=== PATIENT | male | born 1955 | race Caucasian/White ===

== ENCOUNTER 2017-05-04 02:25 | Emergency (ER) | payer MEDICARE, OTHER | END 2017-05-04 22:06 | disposition home or self-care (01) | LOC: CED 02:25 | DX: R10.9 Unspecified abdominal pain (principal); I10 Essential (primary) hypertension; E10.9 Type 1 diabetes mellitus without complications; F17.200 Nicotine dependence, unspecified, uncomplicated | CPT/HCPCS: 99283 ==

== ENCOUNTER 2017-05-04 16:19 | Emergency (ER) | payer MEDICARE, OTHER ==
[~2017-05-04] VITALS: Ht 175.3 cm; Wt 90.0 kg
--- NOTE | ~2017-05-04 | EKG ---
PATIENT: JENIFFER BRYANT UNIT #: [id number] Ventricular Rate: 117 BPM Atrial Rate: 117 BPM P-R Interval: 158 ms QRS Duration: 94 ms Q-T Interval: 336 ms QTC Calculation(Bezet): 468 ms P Midland: 48 degrees Calculated R Midland: -70 degrees Calculated T Mid[place]: 20 degrees Diagnosis Line: Sinus tachycardia Diagnosis Line: Possible Left atrial enlargement Diagnosis Line: Incomplete right bundle branch block Diagnosis Line: Left anterior fascicular block Diagnosis Line: Abnormal ECG Diagnosis Line: No previous ECGs available Diagnosis Line: Confirmed by DANDY WAHL MD ([id number]) on 05/04/2017 Diagnosis Line: 8:04:33 PM INTERPRETING MD: MARYURI CONNER
--- NOTE | ~2017-05-04 | CT4 ---
[facility] A Service of [facility] RADIOLOGY TEXT RESULTS PATIENT: JENIFFER BRYANT LOCATION: [place] : 55 UNIT #: [id number] AGE: [address]: Ariel Mauricio MD SEX: M ORDER DR: [id number] [facility] [address] [place], [place] [address] [id number] MR#: [id number] #: [id number] NAME: JENIFFER BRYANT : 1955 SEX: M STUDY DATE/TIME: 05/04/2017 21:13 UNIT: [facility] ROOM: STUDY DESCRIPTION: CT Abd and Pelv Wo Cont Attending Physician: Ariel Mauricio Ordering Physician: Ed Doctor [id number] [facility] Primary Care Physician: Noel Tavares M.D. MEDICAL IMAGING REPORT This report is preliminary unless electronic signature is present EXAM CT abdomen and pelvis without contrast HISTORY Abdominal pain for 2 days diagnosed with gastroenteritis. Previously seen in the emergency room. Axial images perform through the abdomen and pelvis without contrast. Multiplanar reconstructed images reviewed. The CT exam was performed with one or more of the following radiation dose reduction techniques: automatic exposure control, adjustment of mA and/or kV according to patient size, and iterative reconstruction. ABDOMEN The lung bases unremarkable except for left lower lobe granuloma. Liver demonstrates fatty infiltration. Spleen, gallbladder normal except for splenic granulomas. Pancreas, kidneys and adrenal glands unremarkable. GI tract unremarkable. There is increased attenuation throughout the colon could be related to the distal preparation. PELVIS: Bladder is mildly distended. Prostate unremarkable. Osseous structures remarkable for grade 1 spondylolisthesis L5 on S1 with bilateral L5-S1 facet arthropathy. No definite pars defects seen. The IMPRESSION 1. Diffuse fatty infiltration of the liver. 2. L5-S1 degenerative disc disease with a grade 1 spondylolisthesis L5 on S1 and bilateral L4-5, L5-S1 facet arthropathy. Dictated by... [facility] A Service of [facility] RADIOLOGY TEXT RESULTS PATIENT: JENIFFER BRYANT LOCATION: [place] : 55 UNIT #: [id number] AGE: [address]: Ariel Mauricio MD SEX: M ORDER DR: Yee Bajwa M.D. THIS IS AN ELECTRONICALLY VERIFIED REPORT Yee Bajwa M.D. at 05/05/2017 2:34 PM ILA/chadwick TD: 05/05/2017 08:01 JOB #: [id number] MEDICAL IMAGING REPORT Page 1 of 1 COPY
[2017-05-04 18:12] LABS: ALBUMIN SERUM 4.6 g/dL (3.5-5.0); BILIRUBIN, DIRECT 0.1 mg/dL (0.0-0.2); BILIRUBIN,INDIRECT 0.3 mg/dL (0.0-0.9); BILIRUBIN,TOTAL 0.4 mg/dL (0.2-2.0); BUN/CREATININE RATIO 14.44; CALCIUM SERUM 9.6 mg/dL (8.4-10.2); CREATININE SERUM 0.9 mg/dL (0.6-1.4); GLOM FILT RATE Estimated 91.9 mL/min (>60); POTASSIUM 4.3 mmol/L (3.5-5.1); PROTEIN TOTAL SERUM 8.5 g/dL (6.0-8.3)
[2017-05-04 18:20] LABS: BASOPHIL# 0.2 X10e3 (0-0.3); EOSINOPHIL# 0.1 X10e3 (0-0.7); EOSINOPHIL% 0.5 % (0.0-7.0); HEMATOCRIT 51.4 % (38.0-50.0); HEMOGLOBIN 16.9 gm/dL (13.0-16.0); LYMPHOCYTE# 4.6 X10e3 (1.0-3.5); LYMPHOCYTE% 29.1 % (17.0-45.0); MEAN CELL VOLUME 87.6 FL (83-96); MEAN CORPUSCULAR HEMOGLOBIN 28.7 PG (28-34); MEAN CORPUSCULAR HGB CONC 32.8 g/dL (30-36); MEAN PLATELET VOLUME 8.6 FL (6.5-11.5); MONOCYTE# 1.9 X10e3 (0-1.0); NEUTROPHIL# 9.2 X10e3 (1.5-7.1); NEUTROPHIL% 57.4 % (40-75); PLATELET COUNT 276 X10e3 (140-420); RED BLOOD COUNT 5.86 X10e (3.90-5.60); RED CELL DISTRIBUTION WIDTH 13.3 % (11.0-15.5)
[2017-05-04 18:21] LABS: DIFF IND YES
[2017-05-04 18:47] LABS: PLATELET ESTIMATE NORMAL (NORMAL)
[2017-05-04 18:48] LABS: HYPOCHROMIA SL
[2017-05-04 19:46] LABS: URINE SOURCE CLEAN CATCH
[2017-05-04 19:55] LABS: URINE APPEARANCE CLEAR; URINE BILIRUBIN NEG (NEG); URINE BLOOD NEG (NEG); URINE COLOR YELLOW; URINE GLUCOSE >1000 MG/DL (NEG); URINE KETONE TRACE (NEG); URINE LEUKOCYTE ESTERASE NEG (NEG); URINE NITRATE NEG (NEG); URINE PH 5.5 (5-8); URINE PROTEIN 1+ (NEG)
[2017-05-04 19:58] LABS: U HYALINE CASTS AUWI 0-2 /[LPF]; URBCS1 AUWI 0-2 /[HPF] (0-2); URINE BACTERIA AUWI NEG (NEGATIVE); URINE SQUAMOUS EPITHELIAL CELL NONE SEEN /[HPF]; UWBCS1 AUWI 0-2 (0-5)
[2017-05-04 19:59] LABS: CULTURE INDICATED? NO
== END 2017-05-04 22:06 | disposition home or self-care (01) ==
LOC: CED 16:19
DX: R10.13 Epigastric pain (principal); E11.65 Type 2 diabetes mellitus with hyperglycemia; F17.210 Nicotine dependence, cigarettes, uncomplicated; Z88.8 Allergy status to other drugs, medicaments and biological substances
CPT/HCPCS: 36415; 74176; 80048; 80076; 81003; 83690; 85025; 93005; 96361; 96374; 99284

== ENCOUNTER 2017-05-21 19:34 | Inpatient (IN) | payer MEDICARE, OTHER ==
[~2017-05-21] VITALS: Ht 177.8 cm; Wt 95.2 kg
--- NOTE | ~2017-05-21 | HP ---
Unit #: [id number] #: [id number] Patient: JENIFFER BRYANT [id number] [address] [address] [id number] I MR#: [id number] NAME: JENIFFER BRYANT ROOM: 16319 Age: 61 Sex: M Admission Date: 05/22/2017 : 1955 Attending Physician: Quentin Stauffer M.D. Primary Care Physician: Noel Tavares M.D. HISTORY AND PHYSICAL CHIEF COMPLAINT Pancreatitis. HISTORY This pleasant 61-year-old male with AODM, hypertension, COPD, is admitted for acute pancreatitis. The patient has been experiencing intermittent epigastric pain for the past 1.5 years. He was seen in this emergency department [address] scan was performed revealing diffuse fatty infiltration of the liver. He was prescribed Nexium. Continued with pain which worsened yesterday. He therefore presented back to this emergency department late last evening where labs and CT scan are compatible with acute pancreatitis. Patient does not drink alcohol. In the ER, he was bolused with IV fluids, given 2 doses of morphine, Pepcid and Zofran. PAST MEDICAL HISTORY 1. AODM x7 years. 2. Essential hypertension. 3. COPD. 4. Bilateral arm surgery. ALLERGIES Topical iodine. HOME MEDICATIONS 1. Metformin 500 mg b.i.d. 2. NovoLog 75/25 mix, 30 units in the morning, 40 units in the evening. 3. Lisinopril 5-10 mg daily. 4. Nexium. FAMILY HISTORY Diabetes mellitus. Negative for pancreatic or gallbladder disease. SOCIAL HISTORY The patient lives with his girlfriend. He smokes marijuana frequently but denies other illicit drugs. He smokes 1 pack per day of tobacco, does not drink alcohol. REVIEW OF SYSTEMS Notable for epigastric pain, diabetes, hypertension, COPD, arm surgery, tobacco abuse. All other systems were reviewed and are otherwise negative. PHYSICAL EXAMINATION Unit #: [id number] #: [id number] Patient: JENIFFER BRYANT GENERAL: Pleasant, moderately obese 61-year-old male, currently in no acute distress. VITAL SIGNS: Temperature 98, pulse 93, respirations 16, blood pressure 168/100. O2 saturation is 99% on room air. HEENT: Eyes PERRLA. Extraocular muscles are intact. Pharynx is benign. NECK: Supple without adenopathy or thyromegaly. CHEST: Clear. CARDIAC: Normal S1 and S2 without S3, S4 or murmur. ABDOMEN: Bowel sounds are present. Epigastric tenderness without rebound, guarding. No hepatosplenomegaly or masses. EXTREMITIES: Without C, C or E. Pedal pulses are present. NEUROLOGIC EXAM: Patient is awake, alert, oriented. Cranial nerves are intact. Equal strength throughout. DIAGNOSTIC STUDIES LABORATORY: Hematocrit is 48.8, white blood count 16.5, normal platelet count. Negative cardiac markers. SMA-12 - glucose is 254, sodium 132, chloride is 95, lipase is 246. IMAGING: CT scan - mild pancreatic, hepatic steatosis. Urinalysis - trace protein. ASSESSMENT 1. Abdominal pain intermittently for the past 1.5 years, now with acute pancreatitis. Rule out gallbladder disease. 2. AODM. 3. COPD. 4. Hypertension. PLANS 1. IV fluids and pain control. 2. Obtain gallbladder ultrasound and triglyceride level. 3. If patient has gallstones or gallbladder disease on ultrasound, will consult surgery. Otherwise, consider GI consultation as patient does have an appointment with GI in the future. 4. Sliding scale insulin. 5. SCDs for DVT prophylaxis. Dictated by Esha Panchal/marybeth TD: 05/22/2017 08:24 JOB #: [id number] Unit #: [id number] #: [id number] Patient: JENIFFER BRYANT HISTORY AND PHYSICAL Page 1 of 1 X Cassia Christopher MD X HISTORY AND PHYSICAL
--- NOTE | ~2017-05-21 | US67 ---
[facility] A Service of [facility] RADIOLOGY TEXT RESULTS PATIENT: JENIFFER BRYANT LOCATION: [facility] 233 : 55 UNIT #: [id number] AGE: [address]: Quentin Stauffer MD SEX: M ORDER DR: [id number] [place] [address]. [place], [place] [address] [id number] I MR#: [id number] Acc #: [id number] NAME: JENIFFER BRYANT : 1955 SEX: M STUDY DATE/TIME: 05/22/2017 7:41 [facility] 9[address]67 STUDY DESCRIPTION: US Gallbladder Attending Physician: Quentin Stauffer M.D. Ordering Physician: Juan A Lloyd D.O. Primary Care Physician: Noel Tavares M.D. MEDICAL IMAGING REPORT This report is preliminary unless electronic signature is present EXAM Right upper quadrant ultrasound. Date of study 05/22/17. COMPARISON CT abdomen and pelvis same date. CLINICAL HISTORY Epigastric pain for a year and a half. FINDINGS The pancreas is mostly obscured by bowel gas. There is fatty infiltration of the liver, but no gross evidence of mass or intrahepatic ductal dilatation, though liver assessment is limited due to difficulty with sonographic penetration. Survey images of the right kidney are normal. The gallbladder is normal without stone, wall thickening or pericholecystic fluid. The extrahepatic common duct is normal caliber. IMPRESSION Fatty infiltration of the liver, otherwise normal. No cholelithiasis or evidence of cholecystitis or biliary obstruction. Dictated by... Isaias Garcia M.D. THIS IS AN ELECTRONICALLY VERIFIED REPORT Isaias Garcia M.D. at 05/22/2017 3:58 PM TEV/gz TD: 05/22/2017 11:50 JOB #: [id number] MEDICAL IMAGING REPORT [facility] A Service of [facility] RADIOLOGY TEXT RESULTS PATIENT: JENIFFER BRYANT LOCATION: [facility] : 55 UNIT #: [id number] AGE: [address]: Quentin Stauffer MD SEX: M ORDER DR: Page 1 of 1 COPY
--- NOTE | ~2017-05-21 | DS ---
Unit #: [id number] #: [id number] Patient: JENIFFER BRYANT [id number] [address] [address] [id number] Chris MR#: [id number] NAME: JENIFFER BRYANT ROOM: 233 Age: 61 Sex: M Admission Date: 05/22/2017 : 1955 Discharge Date: 05/22/2017 Attending Physician: Quentin Stauffer M.D. Primary Care Physician: Noel Tavares M.D. DISCHARGE SUMMARY PRIMARY DIAGNOSIS Acute pancreatitis SECONDARY DIAGNOSES Please see H and P. HISTORY OF PRESENT ILLNESS Mr. Jeniffer Bryant is a 61-year-old male who was admitted for pancreatitis by my partner in director of global talent on 05/22/2017. The patient underwent CT scanning of his abdomen and also underwent ultrasound of his right upper quadrant. There were no gallstones seen on these images. I was contacted by the patient's nurse, stating that he requested to speak to a physician about the results of his imaging and wanted to start a diet. I informed the nurse that I would be there late in the afternoon and that the patient be started on a clear liquid diet and asked her to informed that he had no gallstones on his imaging and I requested a consult for Dr. Cole who Mr. Bryant is already scheduled to see for an initial evaluation as an outpatient. Unfortunately when I arrived on the unit at approximately 4:15 in the afternoon to re-evaluate Mr. Bryant the same day that the my partner admitted him and to discuss with him his condition, I was informed that he had already left the hospital against medical advice. DISCHARGE DISPOSITION Patient left against medical advice. DISCHARGE STATUS Unknown, patient left against medical advice. Based on the charting, it appears he is clinically stable. DISCHARGE ACTIVITY Diet and followup and medications are all nonapplicable, as the patient left against medical advice. Dictated by... Quentin Stauffer M.D. JESUS/elayne TD: 05/26/2017 12:37 JOB #: [id number] Unit #: [id number] #: [id number] Patient: JENIFFER BRYANT DISCHARGE SUMMARY Page 1 of 1 X Quentin Stauffer MD DISCHARGE SUMMARY
--- NOTE | ~2017-05-21 | CT4 ---
[facility] A Service of [facility] & [facility] RADIOLOGY TEXT RESULTS PATIENT: JENIFFER BRYANT LOCATION: [facility] 233-01 : 55 UNIT #: [id number] AGE: [address]: Quetnin Stauffer MD SEX: M ORDER DR: [id number] [facility] [address] [place], [place] [address] [id number] I MR#: [id number] Acc #: [id number] NAME: JENIFFER BRYANT : 1955 SEX: M STUDY DATE/TIME: 05/22/2017 00:58 UNIT: [facility] ROOM: 05790 STUDY DESCRIPTION: CT Abd and Pelv Wo Cont Attending Physician: Quentin Stauffer M.D. Ordering Physician: Juan A Lloyd D.O. Primary Care Physician: Noel Tavares M.D. MEDICAL IMAGING REPORT This report is preliminary unless electronic signature is present EXAM CT abdomen and pelvis 05/22 at 0058 hours INDICATION Abdominal pain with burning in the stomach for 1 day. Pancreatitis. TECHNIQUE Axial images were obtained through the abdomen and pelvis without contrast. Multiplanar reformats were obtained. Comparison made with 05/04/2017. This CT examination was performed with one or more of the following radiation dose reduction techniques: automatic exposure control, adjustment of mA and/or kV according to patient size, and iterative reconstruction. FINDINGS ABDOMEN: Some mild atelectasis in the right lower lobe. Gallbladder unremarkable. No renal or ureteral stones are seen. No hydronephrosis. There is diffuse fatty infiltration of the liver. There is fat stranding around the head of the pancreas compatible with acute pancreatitis. Correlate with laboratory data. Solid organs otherwise are normal. No fluid collections are seen to suggest pseudocysts. Unopacified GI tract is grossly normal. PELVIS: Urinary bladder is normal. No lower ureteral stones. No free fluid. There is sigmoid diverticulosis. The GI tract, including the appendix, is otherwise normal. There is degenerative disease in the lower lumbar spine. IMPRESSION 1. Mild uncomplicated acute pancreatitis. No fluid collections. 2. No renal or ureteral stones. No hydronephrosis. 3. Hepatic steatosis. 4. Sigmoid diverticulosis. GI tract, including the appendix, is STS. [facility] A Service of [facility] & [facility] RADIOLOGY TEXT RESULTS PATIENT: JENIFFER BRYANT LOCATION: [facility] 233-01 : 55 UNIT #: [id number] AGE: [address]: Quentin Stauffer MD SEX: M ORDER DR: otherwise normal. Dictated by... Leonard Jruado Jr., M.D. THIS IS AN ELECTRONICALLY VERIFIED REPORT Leonard Jurado Jr., M.D. at 05/25/2017 7:13 AM KAYLEE/duke TD: 05/22/2017 09:46 JOB #: [id number] MEDICAL IMAGING REPORT Page 1 of 1 COPY
[2017-05-21 20:34] LABS: URINE SOURCE CLEAN CATCH
[2017-05-21 20:43] LABS: URINE APPEARANCE CLEAR; URINE BILIRUBIN NEG (NEG); URINE BLOOD NEG (NEG); URINE COLOR YELLOW; URINE GLUCOSE 250 MG/DL (NEG); URINE KETONE TRACE (NEG); URINE LEUKOCYTE ESTERASE NEG (NEG); URINE NITRATE NEG (NEG); URINE PH 5.5 (5-8); URINE PROTEIN TRACE (NEG); URINE SPECIFIC GRAVITY 1.035 (1.003-1.035)
[2017-05-21 20:50] LABS: CULTURE INDICATED? NO
[2017-05-21 22:09] LABS: BASOPHIL# 0.1 X10e3 (0-0.3); BASOPHIL% 0.7 % (0-2.5); EOSINOPHIL# 0.1 X10e3 (0-0.7); EOSINOPHIL% 0.3 % (0.0-7.0); HEMATOCRIT 48.8 % (38.0-50.0); HEMOGLOBIN 16.2 gm/dL (13.0-16.0); LYMPHOCYTE% 24.4 % (17.0-45.0); MEAN CELL VOLUME 87.6 FL (83-96); MEAN CORPUSCULAR HEMOGLOBIN 29.1 PG (28-34); MEAN CORPUSCULAR HGB CONC 33.2 g/dL (30-36); MONOCYTE# 1.7 X10e3 (0-1.0); MONOCYTE% 10.5 % (3.0-12.0); NEUTROPHIL# 10.5 X10e3 (1.5-7.1); NEUTROPHIL% 64.1 % (40-75); PLATELET COUNT 239 X10e3 (140-420); RED BLOOD COUNT 5.57 X10e (3.90-5.60); RED CELL DISTRIBUTION WIDTH 13.6 % (11.0-15.5); WHITE BLOOD COUNT 16.5 X10e3 (4.0-10.5)
[2017-05-21 22:09] LABS: POC - CKMB 1.6 ng/mL (0.0-7.9); POC - TROPONIN <0.05 ng/mL (<=0.05)
[2017-05-21 22:10] LABS: DIFF IND YES
[2017-05-21 22:38] LABS: ALBUMIN SERUM 4.3 g/dL (3.5-5.0); BILIRUBIN,TOTAL 0.3 mg/dL (0.2-2.0); BUN/CREATININE RATIO 16.25; CALCIUM SERUM 9.6 mg/dL (8.4-10.2); CREATININE SERUM 0.8 mg/dL (0.6-1.4); GLOM FILT RATE Estimated 96.5 mL/min (>60); POTASSIUM 4.4 mmol/L (3.5-5.1); PROTEIN TOTAL SERUM 8.2 g/dL (6.0-8.3)
[2017-05-21 23:07] LABS: PLATELET ESTIMATE NORMAL (NORMAL); ROULEAUX SLIGHT
[2017-05-22 07:51] LABS: BASOPHIL# 0.1 X10e3 (0-0.3); BASOPHIL% 0.8 % (0-2.5); EOSINOPHIL# 0.1 X10e3 (0-0.7); EOSINOPHIL% 0.7 % (0.0-7.0); HEMATOCRIT 46.1 % (38.0-50.0); LYMPHOCYTE# 3.7 X10e3 (1.0-3.5); LYMPHOCYTE% 30.9 % (17.0-45.0); MEAN CORPUSCULAR HEMOGLOBIN 28.6 PG (28-34); MEAN CORPUSCULAR HGB CONC 32.5 g/dL (30-36); MEAN PLATELET VOLUME 8.1 FL (6.5-11.5); MONOCYTE# 1.3 X10e3 (0-1.0); MONOCYTE% 10.5 % (3.0-12.0); NEUTROPHIL# 6.8 X10e3 (1.5-7.1); NEUTROPHIL% 57.1 % (40-75); PLATELET COUNT 249 X10e3 (140-420); RED BLOOD COUNT 5.24 X10e (3.90-5.60); RED CELL DISTRIBUTION WIDTH 13.6 % (11.0-15.5)
[2017-05-22 07:53] LABS: DIFF IND NO
[2017-05-22 08:46] LABS: BUN/CREATININE RATIO 14.28; CALCIUM SERUM 8.6 mg/dL (8.4-10.2); CREATININE SERUM 0.7 mg/dL (0.6-1.4); GLOM FILT RATE Estimated 101.9 mL/min (>60)
[2017-05-22] MEDS ORDERED: PATIENT'S PHARMACY (09:37)
[2017-05-22] MEDS ORDERED: NEXIUM PO (09:38)
[2017-05-22] MEDS ORDERED: LISINOPRIL PO (09:38)
[2017-05-22] MEDS ORDERED: METFORMIN PO (09:38)
[2017-05-22] MEDS ORDERED: HUMALOG MI100 UNIT/2 (09:38)
== END 2017-05-22 14:30 | disposition left against medical advice (07) | DRG 440 ==
LOC: CED 19:34 → CEDOF 05-22 03:15 → CED 05-22 03:22 → CEDOF 05-22 03:22 → C2A 05-22 13:14
PROVIDERS: Emergency Medicine
DX: K85.90 Acute pancreatitis without necrosis or infection, unspecified (principal); I10 Essential (primary) hypertension; E11.9 Type 2 diabetes mellitus without complications; J44.9 Chronic obstructive pulmonary disease, unspecified; Z88.8 Allergy status to other drugs, medicaments and biological substances; Z79.4 Long term (current) use of insulin; Z83.3 Family history of diabetes mellitus; F17.200 Nicotine dependence, unspecified, uncomplicated
CPT/HCPCS: 36415; 74176; 76705; 80048; 80053; 81003; 82150; 82553; 82947; 83690; 84478; 84484; 85025; 85730; 96361; 96374; 96375; 96376; 99285; J1815; J2270; J2405